=== PATIENT | male | born 1960 | race Caucasian/White ===

== ENCOUNTER → 2021-12-30 15:06 | Outpatient (CLI) | payer SELFPAY ==
[2022-01-01 17:28] LABS: QuantiFERON Mitogen Value >10.00 IU/mL (.); QuantiFERON Nil Value 0.06 IU/mL (.); QuantiFERON TB Gold Plus Negative (Negative); QuantiFERON TB1 Ag Value 0.06 IU/mL (.); QuantiFERON TB2 Ag Value 0.07 IU/mL (.)
== END ==
PROVIDERS: PCP Internal Medicine
DX: Z13.9 Encounter for screening, unspecified (principal)
CPT/HCPCS: 36415; 86480

== ENCOUNTER → 2022-03-29 06:51 | Outpatient (CLI) | payer OTHER, SELFPAY ==
[2022-03-29 08:03] LABS: Alanine Aminotransferase 29 IU/L (<50); Albumin 4.8 g/dL (3.5-5.0); Albumin Globulin Ratio 1.5 (1.0-2.8); Alkaline Phosphatase 59 U/L (38-126); Aspartate Aminotransferase 31 IU/L (17-59); BUN Creatinine Ratio 17.3 (6-22); Bilirubin Total 0.6 mg/dL (0.2-1.3); Blood Urea Nitrogen 18 mg/dL (9-20); Calcium 9.1 mg/dL (8.4-10.2); Carbon Dioxide 27 mmol/L (22-32); Chloride 102 mmol/L (98-107); Cholesterol 218 mg/dL (140-199); Estimated Glomerular Filt Rate > 60 mL/min (>60); Globulin 3.1 g/dL (1.7-4.1); Glucose 99 mg/dL (80-110); HDL Cholesterol 35 mg/dL (40-60); HEMOLYSIS < 15 (0-50); LDL Cholesterol Calculated 161 mg/dL (<100); Potassium 4.5 mmol/L (3.4-5.1); Sodium 140 mmol/L (137-145); Total Protein 7.9 g/dL (6.3-8.2); Triglycerides 109 mg/dL (35-150)
[2022-03-29 08:31] LABS: TSH w/ Reflex to FT4 3.02 uIU/mL (0.47-4.68)
== END ==
PROVIDERS: PCP Internal Medicine; Referring Provider Internal Medicine; Visit Provider Internal Medicine
DX: E78.5 Hyperlipidemia, unspecified (principal); Z00.00 Encounter for general adult medical examination without abnormal findings
CPT/HCPCS: 36415; 80053; 80061; 84153; 84154; 84443

== ENCOUNTER → 2022-12-06 13:02 | Outpatient (CLI) | payer OTHER, SELFPAY ==
[2022-12-06 14:08] LABS: Cholesterol 230 mg/dL (140-199); HDL Cholesterol 55 mg/dL (40-60); LDL Cholesterol Calculated 137 mg/dL (<100); Triglycerides 189 mg/dL (35-150)
== END ==
PROVIDERS: PCP Internal Medicine; Referring Provider Internal Medicine; Visit Provider Internal Medicine
DX: E78.2 Mixed hyperlipidemia (principal)
CPT/HCPCS: 36415; 80061

== ENCOUNTER → 2024-01-30 10:15 | Outpatient (CLI) | payer OTHER, SELFPAY ==
[2024-01-30 11:43] LABS: Aspartate Aminotransferase 31 IU/L (17-59); BUN Creatinine Ratio 11.2 (6-22); Blood Urea Nitrogen 10 mg/dL (9-20); Calcium 9.3 mg/dL (8.4-10.2); Carbon Dioxide 26 mmol/L (22-32); Chloride 105 mmol/L (98-107); Cholesterol 106 mg/dL (140-199); Estimated Glomerular Filt Rate > 60 mL/min (>60); Glucose 96 mg/dL (80-110); HDL Cholesterol 40 mg/dL (40-60); HEMOLYSIS < 15 (0-50); LDL Cholesterol Calculated 48 mg/dL (<100); Potassium 4.2 mmol/L (3.4-5.1); Sodium 139 mmol/L (137-145); Triglycerides 88 mg/dL (35-150)
[2024-02-02 12:49] LABS: Fecal Immunochemical Test Negative (Negative)
== END ==
PROVIDERS: PCP Internal Medicine; Referring Provider Internal Medicine; Visit Provider Internal Medicine
DX: E78.2 Mixed hyperlipidemia (principal); Z12.5 Encounter for screening for malignant neoplasm of prostate
CPT/HCPCS: 36415; 80048; 80061; 82274; 84450; G0103

== ENCOUNTER → 2025-05-19 12:45 | Outpatient (CLI) | payer OTHER, SELFPAY ==
[2025-05-19 13:50] LABS: Blood Urea Nitrogen 9 mg/dL (9-20); Calcium 9.8 mg/dL (8.4-10.2); Carbon Dioxide 23 mmol/L (22-32); Chloride 105 mmol/L (98-107); Cholesterol 187 mg/dL (140-199); Estimated Glomerular Filt Rate > 60 mL/min (>60); Glucose 86 mg/dL (70-99); HDL Cholesterol 49 mg/dL (40-60); HEMOLYSIS < 15 (0-50); Potassium 4.3 mmol/L (3.4-5.1); Sodium 137 mmol/L (137-145); Triglycerides 102 mg/dL (35-150)
== END ==
PROVIDERS: PCP Internal Medicine; Referring Provider Internal Medicine; Visit Provider Internal Medicine
DX: E78.2 Mixed hyperlipidemia (principal); N40.1 Benign prostatic hyperplasia with lower urinary tract symptoms; N13.8 Other obstructive and reflux uropathy; Z12.5 Encounter for screening for malignant neoplasm of prostate
CPT/HCPCS: 36415; 80048; 80061; 84450; G0103

== ENCOUNTER 2025-08-04 10:25 | Day surgery (SDC) | payer OTHER, SELFPAY ==
[2025-08-04 10:51] VITALS: BP 114/70; PULSE 101; RESP 15; TEMP 36.3; O2SAT 99
[2025-08-04] MEDS: LACTATED RINGERS 1,000 ML 120 ML IV (10:54)
--- NOTE | 2025-08-04 11:04 | P.HP_ITS ---
History of Present Illness History of Present Illness Date Patient Seen: 08/04/25 Chief complaint: Screening Colonoscopy [facility] Medical History (Updated 05/19/25 @ 15:02 by Kendall Miranda MD) Rising PSA level BPH w urinary obs/LUTS Chicken pox (~1966) History of colonic polyps Mixed hyperlipidemia (~2021) Obesity (BMI 30.0-34.9) Insomnia Social History details: , 1 child, radiologist Smoking Status: Never smoker alcohol intake: current Meds Home Medications and Allergies Home Medications ?Medication ?Instructions ?Recorded ?Confirmed ?Type lemborexant 5 mg tablet (Dayvigo) 5 mg PO BEDTIME PRN insomnia #30 04/07/25 04/07/25 Rx tabs rosuvastatin 5 mg tablet 5 mg PO DAILY #90 tabs 06/02 Rx tamsulosin 0.4 mg capsule 0.4 mg PO BEDTIME #90 caps 0 06/02/25 Rx sodium,potassium,mag sulfates 17.5 See Rx Instructions PO .COMPLEX 07/02/25 Rx gram-3.13 gram-1.6 gram oral soln #354 mL (Suprep Bowel Prep Kit) Allergies Allergy/AdvReac Type Severity Reaction Status Date / Time No Known Drug Allergies Allergy Verified 04/07/25 09:10 Exam Vital Signs (past 8 hours): - 08/04/25 10:51 Temperature 97.4 F L Pulse Rate 101 H Respiratory Rate 15 Blood Pressure 114/70 Pulse Oximetry 99 Oxygen Delivery Method Room Air Oxygen Delivery Method Room Air Narrative Exam Narrative: Oropharynx free of lesions Chest clear to auscultation percussion Cardiac exam reveals no S3 or murmur Assessment & Plan Assessment & Plan narrative: History of colon polyps with last colonoscopy almost 10 years ago. Need for follow-up. Risks, benefits, alternatives have been explained. Time-Based Coding :: [TOTAL MINUTES] spent with patient and on the chart (including review of chart, obtaining history, exam, reviewing outside data, placing orders, documenting exam and treatment plan, and counseling patient) on [DATE]. PROFEE Therapeutic Dietitian Document charge(s): No
--- NOTE | 2025-08-04 11:06 | PM.OP.COLON ---
Operative Date/Time/Diagnoses Date of procedure: 08/04/25 Time of procedure: 11:56 Pre-op diagnosis: See indication and findings Post-op diagnosis: same Procedure & Clinicians Study performed: Colonoscopy Same procedure(s) as scheduled: Yes Indications: Follow-up history of colon polyps Surgeon: Xin Philippe Anesthesia Type: Other Procedure Notes Procedure in detail: After informed consent was obtained the patient was placed in left lateral decubitus position. The video colonoscope was introduced the rectum slowly advanced cecum. Preparation was good. On slow withdrawal mucosa was carefully examined. The scope was removed. The patient tolerated procedure well. Blood loss none Complications none Sedation mac Findings 1. Normal colonoscopy to cecum Patient should have follow-up colonoscopy in 10 years
[2025-08-04 12:00] VITALS: BP 83/54; PULSE 83; RESP 7; TEMP 36.3; O2SAT 100
[2025-08-04 12:05] VITALS: BP 91/55; PULSE 78; RESP 22; O2SAT 94
[2025-08-04 12:10] VITALS: BP 94/57; PULSE 78; RESP 20; TEMP 36.4; O2SAT 97
[2025-08-04 12:20] VITALS: BP 106/63; PULSE 79; RESP 18; O2SAT 97
== END 2025-08-04 12:25 | disposition home or self-care (01) ==
PROVIDERS: PCP Internal Medicine; Referring Provider Internal Medicine Gastroenterology; Visit Provider Internal Medicine Gastroenterology
PROC: 0DJD8ZZ Inspection of Lower Intestinal Tract, Via Natural or Artificial Opening Endoscopic (ICD-10-PCS; CPT 45378; principal; 2025-08-04 11:30)
DX: Z12.11 Encounter for screening for malignant neoplasm of colon (principal); Z86.0100 Personal history of colon polyps, unspecified
CPT/HCPCS: 45378; J2704; J7120